=== PATIENT | male | born 1960 | race Caucasian/White ===

== ENCOUNTER 2017-04-18 09:34 | Inpatient (IN) ==
[2017-04-18 10:27] LABS: Apearance,Urine CLOUDY (Clear); Bacteria,Urine Moderate /HPF (Few); Bilirubin,Urine Negative (Negative); Blood, Urine Moderate mg/dL (Negative); Glucose,Urine (UA) Negative (Negative); Ketones,Urine 5 mg/dL (Negative); Mucus,Urine Occasional /LPF (Occasional); Nitrite,Urine Negative (Negative); Protein,Urine 100 MG/DL; RBC,Urine 35 /HPF (0-4); Squamous Epithelial Cell,Urine Occasional /HPF (0-10); Urine Color Yellow (Yellow); Urine Specific Gravity 1.013 (1.001-1.035); Urine Urobilinogen < 2.0 EU/DL (0.2-1.0); WBC,Urine 1108 /HPF (0-6)
[2017-04-18] MEDS ORDERED: PROMETHAZINE 25 MG/1 ML VIAL IV STA (11:09)
[2017-04-18] MEDS ORDERED: SODIUM CHLORIDE 0.9% 1,000 ML IV STA (11:09)
[2017-04-18] MEDS ORDERED: KETOROLAC 30 MG/1 ML VIAL IV STA (11:09)
[2017-04-18 11:36] LABS: Basophils % 0.4 % (0.0-0.8); Eosinophils % 0.1 % (0.00-10.9); Hematocrit 41.3 VOL% (42.0-52.0); Hemoglobin 12.7 GM/DL (14.0-18.0); Immature Granulocytes % 0.4 %; Immature Granulocytes Absolute 0.03 #; Lymphocytes # 0.8 10*3/uL (1.4-4.0); Lymphocytes % 10.7 % (21.2-54.2); Mean Corpuscular HGB Conc 30.8 GM/DL (32-36); Mean Corpuscular Hemoglobin 23 PG (27-34); Mean Platelet Volume 10.5 FL (9.6-12.0); Monocytes # 0.3 10*3/uL (0.11-0.8); Monocytes % 4.3 % (1.7-12.7); Neutrophils # 6.2 10*3/uL (1.4-7.4); Neutrophils % 84.1 % (38.7-73.9); Platelet Count 169 T/CUMM (130-400); Red Blood Count 5.58 MC/CUMM (3.8-5.5); Red Cell Distribution Width 17.5 % (9.3-17.3); White Blood Count 7.4 T/CUMM (4-12)
[2017-04-18] MEDS ORDERED: KETOROLAC 30 MG/1 ML VIAL ONE (11:50)
[2017-04-18] MEDS ORDERED: PROMETHAZINE 25 MG/1 ML VIAL ONE (11:50)
[2017-04-18 11:56] LABS: Albumin 3.6 G/DL (3.4-5.0); Bilirubin,Total 0.7 MG/DL (0.2-1.0); Calcium 8.7 MG/DL (8.5-10.1); Osmolality,Calculated 279.5 MOS/KG (273-304); Potassium 4.2 MMOL/L (3.5-5.1); Total Protein 7.7 G/DL (6.4-8.3)
[2017-04-18] MEDS ORDERED: PROMETHAZINE 25 MG/1 ML VIAL IM PRN (17:09)
[2017-04-18] MEDS ORDERED: diphenhydrAMINE CAP 25 MG CAPSULE PO PRN (17:09)
[2017-04-18] MEDS ORDERED: DOCUSATE SODIUM 100 MG CAPSULE PO PRN (17:09)
[2017-04-18] MEDS ORDERED: MEPERIDINE 50 MG TABLET PO PRN (17:09)
[2017-04-18] MEDS ORDERED: MEPERIDINE 25 MG/1 ML VIAL IV SCH (17:30)
[2017-04-18] MEDS: ENOXAPARIN 40 MG/0.4 ML SYRINGE SUBCUT SCH (18:14)
[2017-04-18] MEDS: SODIUM CHLORIDE 0.9% 1,000 ML IV SCH (18:30)
[2017-04-18] MEDS: MEPERIDINE 25 MG/1 ML VIAL IV PRN ×2 (18:31→21:45)
[2017-04-18] MEDS: ONDANSETRON 4 MG/2 ML VIAL IV PRN ×2 (18:34→21:49)
[2017-04-18] MEDS: TAMSULOSIN 0.4 MG CAPSULE PO SCH (21:38)
[2017-04-19] MEDS: SODIUM CHLORIDE 0.9% 1,000 ML IV SCH ×3 (01:42→20:30)
[2017-04-19 07:06] LABS: Basophils % 0.1 % (0.0-0.8); Hematocrit 36.3 VOL% (42.0-52.0); Hemoglobin 10.8 GM/DL (14.0-18.0); Immature Granulocytes % 0.7 %; Immature Granulocytes Absolute 0.07 #; Lymphocytes # 0.4 10*3/uL (1.4-4.0); Lymphocytes % 4.2 % (21.2-54.2); Mean Corpuscular HGB Conc 29.8 GM/DL (32-36); Mean Corpuscular Hemoglobin 23 PG (27-34); Mean Corpuscular Volume 75.5 FL (87-102); Mean Platelet Volume 10.7 FL (9.6-12.0); Monocytes # 0.7 10*3/uL (0.11-0.8); Monocytes % 7.2 % (1.7-12.7); Neutrophils # 8.6 10*3/uL (1.4-7.4); Neutrophils % 87.8 % (38.7-73.9); Red Blood Count 4.81 MC/CUMM (3.8-5.5); Red Cell Distribution Width 17.2 % (9.3-17.3)
[2017-04-19] MEDS ORDERED: LEVOFLOXACIN INJ 500 MG in PREMIX 1 EACH IV ONE (07:17)
[2017-04-19 07:22] LABS: Platelet Count 119 T/CUMM (130-400); White Blood Count 9.8 T/CUMM (4-12)
[2017-04-19 07:34] LABS: Band Neutrophils 6 % (0-10); Calcium 7.5 MG/DL (8.5-10.1); Hypochromasia 1+; Lymphocytes 3 % (20-55); Microcytosis 1+; Osmolality,Calculated 279.5 MOS/KG (273-304); Ovalocytes Few; Potassium 4.2 MMOL/L (3.5-5.1); Segmented Neutrophils 88 % (50-85); Total Cells Counted 100
[2017-04-19 07:35] LABS: Platelet Estimate Decreased
[2017-04-19] MEDS: MEPERIDINE 25 MG/1 ML VIAL IV PRN (08:19)
[2017-04-19] MEDS: PANTOPRAZOLE 40 MG TABLET PO SCH (08:20)
[2017-04-19] MEDS: ONDANSETRON 4 MG/2 ML VIAL IV PRN (08:20)
[2017-04-19] MEDS ORDERED: TAMSULOSIN 0.4 MG CAPSULE PO SCH (09:00)
[2017-04-19] MEDS: ENOXAPARIN 40 MG/0.4 ML SYRINGE SUBCUT SCH (16:41)
[2017-04-19] MEDS ORDERED: ACETAMINOPHEN 1,000 MG/100 ML VIAL IV ONE (17:08)
[2017-04-19] MEDS ORDERED: ACETAMINOPHEN INJ 1,000 MG in PREMIX 1 EACH IV ONE (17:08)
[2017-04-19 17:13] LABS: Apearance,Urine CLOUDY (Clear); Bilirubin,Urine Negative (Negative); Blood, Urine Large mg/dL (Negative); Glucose,Urine (UA) Negative (Negative); Ketones,Urine Negative (Negative); Nitrite,Urine Negative (Negative); Protein,Urine 30 MG/DL; RBC,Urine 302 /HPF (0-4); Urine Color Yellow (Yellow); Urine Specific Gravity 1.005 (1.001-1.035); Urine Urobilinogen < 2.0 EU/DL (0.2-1.0); WBC,Urine 574 /HPF (0-6)
[2017-04-19] MEDS: VANCOMYCIN INJ 2,000 MG in SODIUM CHLORIDE 0.9% 500 ML IV SCH (18:09)
[2017-04-19] MEDS ORDERED: fentaNYL 100 MCG/2 ML VIAL ONE (19:45)
[2017-04-19] MEDS ORDERED: DESFLURANE 1 UNIT/15 MINUTE INH ONE (19:45)
[2017-04-19] MEDS ORDERED: PROPOFOL 200 MG/20 ML VIAL IV ONE (19:45)
[2017-04-19] MEDS ORDERED: SEVOFLURANE 1 UNIT/15 MINUTE INH ONE (19:45)
[2017-04-19] MEDS ORDERED: MIDAZOLAM 2 MG/2 ML VIAL ONE (19:46)
[2017-04-19] MEDS ORDERED: ROCURONIUM 100 MG/10 ML VIAL IV ONE (19:46)
[2017-04-19] MEDS ORDERED: ONDANSETRON 4 MG/2 ML VIAL ONE (19:46)
[2017-04-19] MEDS ORDERED: SUCCINYLCHOLINE 200 MG/10 ML VIAL ONE (19:46)
[2017-04-19] MEDS: TAMSULOSIN 0.4 MG CAPSULE PO SCH (20:28)
[2017-04-20] MEDS: ACETAMINOPHEN 325 MG TABLET PO PRN ×2 (00:49→09:00)
[2017-04-20] MEDS: SODIUM CHLORIDE 0.9% 1,000 ML IV SCH ×3 (05:13→16:13)
[2017-04-20] MEDS: VANCOMYCIN INJ 2,000 MG in SODIUM CHLORIDE 0.9% 500 ML IV SCH ×2 (05:15→17:09)
[2017-04-20 07:22] LABS: Calcium 7.8 MG/DL (8.5-10.1); Osmolality,Calculated 274.8 MOS/KG (273-304); Potassium 3.6 MMOL/L (3.5-5.1)
[2017-04-20] MEDS ORDERED: LEVOFLOXACIN INJ 500 MG in PREMIX 1 EACH IV SCH (09:00)
[2017-04-20] MEDS: PANTOPRAZOLE 40 MG TABLET PO SCH (09:00)
[2017-04-20] MEDS ORDERED: SULFAMETHOX/TRIMETHOPRIM 800-160 MG TABLET ONE (15:54)
[2017-04-20] MEDS: SULFAMETHOX/TRIMETHOPRIM 800-160 MG TABLET PO SCH ×2 (15:57→21:09)
[2017-04-20] MEDS: ENOXAPARIN 40 MG/0.4 ML SYRINGE SUBCUT SCH (17:09)
[2017-04-20] MEDS: MEPERIDINE 50 MG TABLET PO PRN (21:08)
[2017-04-20] MEDS: TAMSULOSIN 0.4 MG CAPSULE PO SCH (21:09)
[2017-04-21] MEDS: SODIUM CHLORIDE 0.9% 1,000 ML IV SCH ×3 (00:01→18:10)
[2017-04-21] MEDS: VANCOMYCIN INJ 2,000 MG in SODIUM CHLORIDE 0.9% 500 ML IV SCH ×2 (05:51→18:40)
[2017-04-21] MEDS: PANTOPRAZOLE 40 MG TABLET PO SCH (08:59)
[2017-04-21] MEDS: SULFAMETHOX/TRIMETHOPRIM 800-160 MG TABLET PO SCH ×2 (08:59→20:14)
[2017-04-21] MEDS ORDERED: TOBRAMYCIN INJ 160 MG in SODIUM CHLORIDE 0.9% 100 ML IV ONE (12:25)
[2017-04-21] MEDS ORDERED: FUROSEMIDE 40 MG/4 ML VIAL IV ONE (18:03)
[2017-04-21] MEDS: ENOXAPARIN 40 MG/0.4 ML SYRINGE SUBCUT SCH (18:10)
[2017-04-21] MEDS: TAMSULOSIN 0.4 MG CAPSULE PO SCH (20:14)
[2017-04-21] MEDS: MEPERIDINE 50 MG TABLET PO PRN (21:10)
[2017-04-21] MEDS: ACETAMINOPHEN 325 MG TABLET PO PRN (21:47)
[2017-04-22] MEDS: VANCOMYCIN INJ 2,000 MG in SODIUM CHLORIDE 0.9% 500 ML IV SCH ×2 (05:14→17:13)
[2017-04-22 07:00] LABS: Basophils % 0.5 % (0.0-0.8); Eosinophils # 0.1 10*3/uL (0.0-0.87); Eosinophils % 2.8 % (0.00-10.9); Hematocrit 31.8 VOL% (42.0-52.0); Hemoglobin 9.6 GM/DL (14.0-18.0); Immature Granulocytes % 1.4 %; Immature Granulocytes Absolute 0.03 #; Lymphocytes # 0.4 10*3/uL (1.4-4.0); Lymphocytes % 17.8 % (21.2-54.2); Mean Corpuscular HGB Conc 30.2 GM/DL (32-36); Mean Corpuscular Hemoglobin 22 PG (27-34); Mean Corpuscular Volume 74.1 FL (87-102); Mean Platelet Volume 10.9 FL (9.6-12.0); Monocytes # 0.3 10*3/uL (0.11-0.8); Monocytes % 15.9 % (1.7-12.7); Neutrophils # 1.3 10*3/uL (1.4-7.4); Neutrophils % 61.6 % (38.7-73.9); Platelet Count 69 T/CUMM (130-400); Red Blood Count 4.29 MC/CUMM (3.8-5.5); Red Cell Distribution Width 17.2 % (9.3-17.3); White Blood Count 2.1 T/CUMM (4-12)
[2017-04-22 07:20] LABS: Band Neutrophils 8 % (0-10); Eosinophils 2 % (0-10); Lymphocytes 17 % (20-55); Segmented Neutrophils 62 % (50-85); Total Cells Counted 100
[2017-04-22 07:21] LABS: Hypochromasia 1+; Microcytosis 1+; Ovalocytes Slight; Platelet Estimate Decreased
[2017-04-22 07:30] LABS: Albumin 2.1 G/DL (3.4-5.0); Bilirubin,Total 0.4 MG/DL (0.2-1.0); Calcium 7.5 MG/DL (8.5-10.1); Osmolality,Calculated 278.4 MOS/KG (273-304); Potassium 3.1 MMOL/L (3.5-5.1); Total Protein 5.7 G/DL (6.4-8.3)
[2017-04-22] MEDS: PANTOPRAZOLE 40 MG TABLET PO SCH (08:13)
[2017-04-22] MEDS: SULFAMETHOX/TRIMETHOPRIM 800-160 MG TABLET PO SCH (08:13)
[2017-04-22] MEDS: ENOXAPARIN 40 MG/0.4 ML SYRINGE SUBCUT SCH (17:13)
[2017-04-22] MEDS: TAMSULOSIN 0.4 MG CAPSULE PO SCH (20:58)
[2017-04-23] MEDS: VANCOMYCIN INJ 2,000 MG in SODIUM CHLORIDE 0.9% 500 ML IV SCH ×2 (06:21→17:00)
[2017-04-23] MEDS ORDERED: POTASSIUM CHLORIDE 20 MEQ TABLET PO ONE (07:34)
[2017-04-23 08:03] LABS: Basophils % 0.3 % (0.0-0.8); Eosinophils # 0.1 10*3/uL (0.0-0.87); Eosinophils % 3.4 % (0.00-10.9); Hematocrit 32.7 VOL% (42.0-52.0); Hemoglobin 9.9 GM/DL (14.0-18.0); Immature Granulocytes Absolute 0.03 #; Lymphocytes # 0.5 10*3/uL (1.4-4.0); Lymphocytes % 18.2 % (21.2-54.2); Mean Corpuscular HGB Conc 30.3 GM/DL (32-36); Mean Corpuscular Hemoglobin 22 PG (27-34); Mean Corpuscular Volume 74.1 FL (87-102); Mean Platelet Volume 11.1 FL (9.6-12.0); Monocytes # 0.4 10*3/uL (0.11-0.8); Monocytes % 13.5 % (1.7-12.7); Neutrophils # 1.9 10*3/uL (1.4-7.4); Neutrophils % 63.6 % (38.7-73.9); Red Blood Count 4.41 MC/CUMM (3.8-5.5); Red Cell Distribution Width 17.3 % (9.3-17.3)
[2017-04-23 08:05] LABS: Platelet Count 92 T/CUMM (130-400)
[2017-04-23] MEDS: PANTOPRAZOLE 40 MG TABLET PO SCH (08:15)
[2017-04-23 08:29] LABS: Band Neutrophils 2 % (0-10); Eosinophils 4 % (0-10); Giant Platelets Few; Hypochromasia 1+; Lymphocytes 13 % (20-55); Microcytosis Slight; Ovalocytes Slight; Platelet Estimate Decreased; Segmented Neutrophils 64 % (50-85); Total Cells Counted 100
[2017-04-23] MEDS: ENOXAPARIN 40 MG/0.4 ML SYRINGE SUBCUT SCH (16:58)
[2017-04-23] MEDS: TAMSULOSIN 0.4 MG CAPSULE PO SCH (20:21)
[2017-04-24] MEDS: VANCOMYCIN INJ 2,000 MG in SODIUM CHLORIDE 0.9% 500 ML IV SCH ×2 (05:05→17:55)
[2017-04-24 06:03] LABS: Basophils % 0.6 % (0.0-0.8); Eosinophils # 0.2 10*3/uL (0.0-0.87); Eosinophils % 4.8 % (0.00-10.9); Hematocrit 32.5 VOL% (42.0-52.0); Hemoglobin 9.7 GM/DL (14.0-18.0); Immature Granulocytes % 2.1 %; Immature Granulocytes Absolute 0.07 #; Lymphocytes # 0.6 10*3/uL (1.4-4.0); Lymphocytes % 17.9 % (21.2-54.2); Mean Corpuscular HGB Conc 29.8 GM/DL (32-36); Mean Corpuscular Hemoglobin 22 PG (27-34); Mean Corpuscular Volume 74.5 FL (87-102); Mean Platelet Volume 11.1 FL (9.6-12.0); Monocytes # 0.4 10*3/uL (0.11-0.8); Monocytes % 12.2 % (1.7-12.7); Neutrophils # 2.1 10*3/uL (1.4-7.4); Neutrophils % 62.4 % (38.7-73.9); Platelet Count 96 T/CUMM (130-400); Red Blood Count 4.36 MC/CUMM (3.8-5.5); Red Cell Distribution Width 17.4 % (9.3-17.3); White Blood Count 3.4 T/CUMM (4-12)
[2017-04-24 06:29] LABS: Albumin 2.2 G/DL (3.4-5.0); Bilirubin,Total 0.5 MG/DL (0.2-1.0); Calcium 7.6 MG/DL (8.5-10.1); Osmolality,Calculated 283.8 MOS/KG (273-304); Potassium 3.1 MMOL/L (3.5-5.1); Total Protein 5.6 G/DL (6.4-8.3)
[2017-04-24] MEDS ORDERED: POTASSIUM CHLORIDE 20 MEQ TABLET PO ONE (07:18)
[2017-04-24 07:48] LABS: Giant Platelets Few; Hypochromasia 1+; Microcytosis Slight; Ovalocytes Slight; Platelet Estimate Decreased
[2017-04-24] MEDS: PANTOPRAZOLE 40 MG TABLET PO SCH (09:07)
[2017-04-24] MEDS ORDERED: POTASSIUM CHLORIDE 20 MEQ/15 ML UDCUP PO ONE (16:44)
[2017-04-24] MEDS: ENOXAPARIN 40 MG/0.4 ML SYRINGE SUBCUT SCH (17:55)
[2017-04-24] MEDS: TAMSULOSIN 0.4 MG CAPSULE PO SCH (21:29)
[2017-04-24] MEDS: MEPERIDINE 25 MG/1 ML VIAL IV PRN (23:06)
[2017-04-25] MEDS ORDERED: TOBRAMYCIN INJ 160 MG in SODIUM CHLORIDE 0.9% 100 ML IV ONE (06:00)
[2017-04-25 06:02] LABS: Basophils % 0.5 % (0.0-0.8); Eosinophils # 0.2 10*3/uL (0.0-0.87); Eosinophils % 5.2 % (0.00-10.9); Hematocrit 32.1 VOL% (42.0-52.0); Hemoglobin 9.9 GM/DL (14.0-18.0); Immature Granulocytes % 3.6 %; Immature Granulocytes Absolute 0.16 #; Lymphocytes # 0.9 10*3/uL (1.4-4.0); Lymphocytes % 19.6 % (21.2-54.2); Mean Corpuscular HGB Conc 30.8 GM/DL (32-36); Mean Corpuscular Hemoglobin 23 PG (27-34); Mean Corpuscular Volume 73.3 FL (87-102); Mean Platelet Volume 10.9 FL (9.6-12.0); Monocytes # 0.5 10*3/uL (0.11-0.8); Monocytes % 10.4 % (1.7-12.7); Neutrophils # 2.7 10*3/uL (1.4-7.4); Neutrophils % 60.7 % (38.7-73.9); Platelet Count 112 T/CUMM (130-400); Red Blood Count 4.38 MC/CUMM (3.8-5.5); Red Cell Distribution Width 17.5 % (9.3-17.3); White Blood Count 4.4 T/CUMM (4-12)
[2017-04-25 06:27] LABS: Albumin 2.3 G/DL (3.4-5.0); Band Neutrophils 1 % (0-10); Bilirubin,Total 0.5 MG/DL (0.2-1.0); Calcium 7.5 MG/DL (8.5-10.1); Eosinophils 3 % (0-10); Giant Platelets Few; Hypochromasia 1+; Lymphocytes 26 % (20-55); Microcytosis Slight; Ovalocytes Slight; Platelet Estimate Decreased; Potassium 3.5 MMOL/L (3.5-5.1); Segmented Neutrophils 56 % (50-85); Total Cells Counted 100; Total Protein 5.5 G/DL (6.4-8.3)
[2017-04-25] MEDS: MEPERIDINE 25 MG/1 ML VIAL IV PRN (09:23)
[2017-04-25] MEDS: ONDANSETRON 4 MG/2 ML VIAL IV PRN (09:24)
[2017-04-25] MEDS: PANTOPRAZOLE 40 MG TABLET PO SCH (09:24)
[2017-04-25] MEDS: VANCOMYCIN INJ 2,000 MG in SODIUM CHLORIDE 0.9% 500 ML IV SCH ×2 (11:00→21:10)
[2017-04-25] MEDS ORDERED: SCOPOLAMINE 1.5 MG PATCH TRANSDERM ONE ×2 (12:52→12:58)
[2017-04-25] MEDS ORDERED: PROPOFOL 200 MG/20 ML VIAL IV ONE (15:31)
[2017-04-25] MEDS ORDERED: MIDAZOLAM 2 MG/2 ML VIAL ONE (15:31)
[2017-04-25] MEDS ORDERED: fentaNYL 100 MCG/2 ML VIAL ONE (15:31)
[2017-04-25] MEDS ORDERED: DESFLURANE 1 UNIT/15 MINUTE INH ONE (15:32)
[2017-04-25] MEDS ORDERED: ONDANSETRON 4 MG/2 ML VIAL ONE (15:32)
[2017-04-25] MEDS ORDERED: ePHEDrine 50 MG/ML AMP ONE (15:32)
[2017-04-25] MEDS ORDERED: SUCCINYLCHOLINE 200 MG/10 ML VIAL ONE (15:32)
[2017-04-25] MEDS: ENOXAPARIN 40 MG/0.4 ML SYRINGE SUBCUT SCH (17:31)
[2017-04-25] MEDS: TAMSULOSIN 0.4 MG CAPSULE PO SCH (21:06)
[2017-04-26] MEDS: ACETAMINOPHEN 325 MG TABLET PO PRN ×2 (01:05→08:22)
[2017-04-26] MEDS: PANTOPRAZOLE 40 MG TABLET PO SCH (08:23)
[2017-04-26] MEDS: VANCOMYCIN INJ 2,000 MG in SODIUM CHLORIDE 0.9% 500 ML IV SCH (11:27)
[2017-04-26] MEDS: ENOXAPARIN 40 MG/0.4 ML SYRINGE SUBCUT SCH (17:48)
[2017-04-26] MEDS: TAMSULOSIN 0.4 MG CAPSULE PO SCH (21:07)
[2017-04-27] MEDS: VANCOMYCIN INJ 2,000 MG in SODIUM CHLORIDE 0.9% 500 ML IV SCH ×3 (00:34→22:20)
[2017-04-27] MEDS: PANTOPRAZOLE 40 MG TABLET PO SCH (08:45)
[2017-04-27] MEDS: TAMSULOSIN 0.4 MG CAPSULE PO SCH (22:20)
[2017-04-28] MEDS: PANTOPRAZOLE 40 MG TABLET PO SCH (08:23)
[2017-04-28] MEDS ORDERED: FUROSEMIDE 40 MG/4 ML VIAL IV ONE (11:38)
[2017-04-28] MEDS: VANCOMYCIN INJ 2,000 MG in SODIUM CHLORIDE 0.9% 500 ML IV SCH ×2 (12:26→23:49)
[2017-04-28] MEDS ORDERED: GENTAMICIN 80 MG/2 ML VIAL ONE (14:03)
[2017-04-28] MEDS ORDERED: GENTAMICIN INJ 160 MG in SODIUM CHLORIDE 0.9% 100 ML IV ONE ×2 (15:00→16:00)
[2017-04-28] MEDS ORDERED: fentaNYL 100 MCG/2 ML VIAL ONE (15:38)
[2017-04-28] MEDS ORDERED: MIDAZOLAM 2 MG/2 ML VIAL ONE (15:38)
[2017-04-28] MEDS ORDERED: SUCCINYLCHOLINE 200 MG/10 ML VIAL ONE (15:38)
[2017-04-28] MEDS ORDERED: GLYCOPYRROLATE 0.4 MG/2 ML VIAL ONE (15:38)
[2017-04-28] MEDS ORDERED: NEOSTIGMINE 10 MG/10 ML VIAL ONE (15:38)
[2017-04-28] MEDS ORDERED: ePHEDrine 50 MG/ML AMP ONE (15:38)
[2017-04-28] MEDS ORDERED: PROPOFOL 200 MG/20 ML VIAL IV ONE (15:38)
[2017-04-28] MEDS ORDERED: SEVOFLURANE 1 UNIT/15 MINUTE INH ONE (15:38)
[2017-04-28] MEDS ORDERED: ROCURONIUM 100 MG/10 ML VIAL IV ONE (15:39)
[2017-04-28] MEDS: ENOXAPARIN 40 MG/0.4 ML SYRINGE SUBCUT SCH (16:32)
[2017-04-28] MEDS: ACETAMINOPHEN 325 MG TABLET PO PRN ×2 (17:08→20:56)
[2017-04-28] MEDS: TAMSULOSIN 0.4 MG CAPSULE PO SCH (20:56)
[2017-04-29 06:53] LABS: Basophils % 0.4 % (0.0-0.8); Eosinophils # 0.2 10*3/uL (0.0-0.87); Eosinophils % 3.5 % (0.00-10.9); Hemoglobin 10.1 GM/DL (14.0-18.0); Immature Granulocytes % 3.3 %; Immature Granulocytes Absolute 0.16 #; Mean Corpuscular HGB Conc 29.7 GM/DL (32-36); Mean Corpuscular Hemoglobin 23 PG (27-34); Mean Corpuscular Volume 76.2 FL (87-102); Mean Platelet Volume 9.9 FL (9.6-12.0); Monocytes # 0.4 10*3/uL (0.11-0.8); Monocytes % 8.6 % (1.7-12.7); Neutrophils # 3.1 10*3/uL (1.4-7.4); Neutrophils % 64.2 % (38.7-73.9); Platelet Count 194 T/CUMM (130-400); Red Blood Count 4.46 MC/CUMM (3.8-5.5); Red Cell Distribution Width 17.7 % (9.3-17.3); White Blood Count 4.9 T/CUMM (4-12)
[2017-04-29 07:30] LABS: Albumin 2.3 G/DL (3.4-5.0); Bilirubin,Total 0.6 MG/DL (0.2-1.0); Calcium 7.7 MG/DL (8.5-10.1)
[2017-04-29] MEDS: PANTOPRAZOLE 40 MG TABLET PO SCH (08:45)
[2017-04-29] MEDS: VANCOMYCIN INJ 2,000 MG in SODIUM CHLORIDE 0.9% 500 ML IV SCH ×2 (10:38→22:31)
[2017-04-29] MEDS: ENOXAPARIN 40 MG/0.4 ML SYRINGE SUBCUT SCH (17:27)
[2017-04-29] MEDS: TAMSULOSIN 0.4 MG CAPSULE PO SCH (20:57)
[2017-04-30] MEDS: ACETAMINOPHEN 325 MG TABLET PO PRN ×2 (02:56→12:09)
[2017-04-30] MEDS: PANTOPRAZOLE 40 MG TABLET PO SCH (09:20)
[2017-04-30 11:37] VITALS: BP 104/68
[2017-04-30] MEDS: VANCOMYCIN INJ 2,000 MG in SODIUM CHLORIDE 0.9% 500 ML IV SCH (12:12)
[2017-05-03 22:56] LABS: Stone Source Kidney
== END 2017-04-30 16:28 | disposition home or self-care (01) | DRG 669 ==
LOC: N.ED 09:34 → SUATTDRO 16:34 → N.EDINP 16:34 → N.5E 18:03
PROVIDERS: ADMIT Internal Medicine; ATTEND Family Medicine